=== PATIENT | female | born 1950 | race Caucasian/White ===

== ENCOUNTER → 2016-12-29 | Outpatient (CLI) | payer OTHER | END | disposition home or self-care (01) | LOC: C.PAPS 14:08 | PROVIDERS: ATTEND Obstetrics & Gynecology | DX: Z12.4 Encounter for screening for malignant neoplasm of cervix (principal) ==

== ENCOUNTER → 2017-01-16 | Outpatient (CLI) | payer OTHER ==
[2017-01-16 13:23] LABS: BASO % 0.5 %; BASO ABS # 0.04 K/uL (0-0.2); COMPLETE YES; EOS % 0.6 %; HEMATOCRIT 42.1 % (37-47); IG% 0.3 %; LYMPH % 18.9 %; LYMPH ABS # 1.67 K/uL (1.2-3.4); MEAN CELL VOLUME 98.4 fL (80-100); MEAN CORPUSCULAR HEMOGLOBIN 33.2 pg (25-34); MEAN CORPUSCULAR HGB CONC 33.7 g/dl (32-36); MEAN PLATELET VOLUME 10.5 fL (7.4-10.4); MONO % 5.4 %; NEUT % 74.3 %; PLATELET COUNT 289 K/uL (130-400); RED BLOOD COUNT 4.28 M/uL (4.2-5.4); WHITE BLOOD COUNT 8.82 K/uL (4.8-10.8)
[2017-01-16 13:45] LABS: ALT/SGPT 25 U/L (12-78); AST/SGOT 19 U/L (15-37); CREATININE 0.78 mg/dl (0.60-1.20)
[2017-01-16 13:48] LABS: ALKALINE PHOSPHATASE 74 U/L (45-117)
== END | disposition home or self-care (01) ==
LOC: C.LAB1850 11:49
PROVIDERS: ATTEND Internal Medicine Rheumatology
DX: M06.9 Rheumatoid arthritis, unspecified (principal); Z79.899 Other long term (current) drug therapy; T38.0X1A Poisoning by glucocorticoids and synthetic analogues, accidental (unintentional), initial encounter; M85.80 Other specified disorders of bone density and structure, unspecified site

== ENCOUNTER → 2017-04-17 | Outpatient (CLI) | payer OTHER ==
[2017-04-17 17:58] LABS: BASO % 0.5 %; BASO ABS # 0.04 K/uL (0-0.2); COMPLETE YES; EOS % 0.4 %; HEMATOCRIT 38.3 % (37-47); IG% 0.4 %; LYMPH % 23.4 %; LYMPH ABS # 1.93 K/uL (1.2-3.4); MEAN CELL VOLUME 97.2 fL (80-100); MEAN CORPUSCULAR HEMOGLOBIN 32.5 pg (25-34); MEAN CORPUSCULAR HGB CONC 33.4 g/dl (32-36); MEAN PLATELET VOLUME 10.5 fL (7.4-10.4); NEUT % 68.3 %; PLATELET COUNT 288 K/uL (130-400); RED BLOOD COUNT 3.94 M/uL (4.2-5.4); WHITE BLOOD COUNT 8.26 K/uL (4.8-10.8)
[2017-04-17 18:11] LABS: ALT/SGPT 19 U/L (12-78)
[2017-04-17 18:14] LABS: ALKALINE PHOSPHATASE 67 U/L (45-117); AST/SGOT 21 U/L (15-37)
== END | disposition home or self-care (01) ==
LOC: C.LABMFLN 13:15
PROVIDERS: ATTEND Internal Medicine Rheumatology
DX: M06.9 Rheumatoid arthritis, unspecified (principal); Z79.899 Other long term (current) drug therapy; T38.0X1A Poisoning by glucocorticoids and synthetic analogues, accidental (unintentional), initial encounter

== ENCOUNTER → 2017-06-10 | Outpatient (CLI) | payer OTHER | END | disposition home or self-care (01) | LOC: C.LABMFLN 11:04 | PROVIDERS: ATTEND Family Medicine | DX: M19.90 Unspecified osteoarthritis, unspecified site (principal) ==

== ENCOUNTER → 2017-08-25 | Outpatient (CLI) | payer OTHER ==
[2017-08-25 12:56] LABS: BASO % 0.2 %; BASO ABS # 0.02 K/uL (0-0.2); COMPLETE YES; EOS % 0.6 %; HEMATOCRIT 39.5 % (37-47); IG% 0.2 %; LYMPH % 19.8 %; LYMPH ABS # 2.04 K/uL (1.2-3.4); MEAN CELL VOLUME 97.5 fL (80-100); MEAN CORPUSCULAR HEMOGLOBIN 33.6 pg (25-34); MEAN CORPUSCULAR HGB CONC 34.4 g/dl (32-36); MEAN PLATELET VOLUME 10.5 fL (7.4-10.4); MONO % 3.7 %; NEUT % 75.5 %; PLATELET COUNT 258 K/uL (130-400); RED BLOOD COUNT 4.05 M/uL (4.2-5.4); WHITE BLOOD COUNT 10.29 K/uL (4.8-10.8)
[2017-08-25 13:32] LABS: ALT/SGPT 26 U/L (12-78); CREATININE 0.86 mg/dl (0.60-1.20)
[2017-08-25 13:34] LABS: ALKALINE PHOSPHATASE 71 U/L (45-117); AST/SGOT 29 U/L (15-37)
== END | disposition home or self-care (01) ==
LOC: C.LABMFLN 08:49
PROVIDERS: ATTEND Internal Medicine Rheumatology
DX: M06.9 Rheumatoid arthritis, unspecified (principal); Z79.899 Other long term (current) drug therapy; M85.80 Other specified disorders of bone density and structure, unspecified site

== ENCOUNTER → 2017-12-28 | Outpatient (CLI) | payer OTHER ==
[2017-12-28 13:45] LABS: BASO % 0.2 %; BASO ABS # 0.02 K/uL (0-0.2); EOS % 0.3 %; EOS ABS # 0.03 K/uL (0-0.5); HEMOGLOBIN 13.1 g/dL (12.0-16.0); IG# 0.03 K/uL (0.00-0.02); LYMPH % 16.7 %; MEAN CORPUSCULAR HEMOGLOBIN 32.9 pg (25-34); MEAN CORPUSCULAR HGB CONC 33.6 g/dl (32-36); MEAN PLATELET VOLUME 10.9 fL (7.4-10.4); MONO % 6.1 %; MONO ABS # 0.55 K/uL (0.11-0.59); NEUT % 76.4 %; NEUT ABS # 6.87 K/uL (1.4-6.5); PLATELET COUNT 267 K/uL (130-400); RED CELL DISTRIBUTION WIDTH CV 14.1 % (11.5-14.5); RED CELL DISTRIBUTION WIDTH SD 50.3 fL (36.4-46.3)
[2017-12-28 15:58] LABS: ALBUMIN 3.7 gm/dl (3.4-5.0); ALT/SGPT 26 U/L (12-78); CREATININE 0.85 mg/dl (0.60-1.20)
[2017-12-28 16:01] LABS: ALKALINE PHOSPHATASE 64 U/L (45-117); AST/SGOT 29 U/L (15-37); TOTAL PROTEIN 6.7 gm/dl (6.4-8.2)
== END | disposition home or self-care (01) ==
LOC: C.LABMFLN 10:50
PROVIDERS: ATTEND Internal Medicine Rheumatology
DX: Z51.81 Encounter for therapeutic drug level monitoring (principal); M06.9 Rheumatoid arthritis, unspecified; Z79.899 Other long term (current) drug therapy; M25.439 Effusion, unspecified wrist

== ENCOUNTER → 2018-04-27 | Outpatient (CLI) | payer OTHER ==
[2018-04-27 13:08] LABS: BASO % 0.4 %; BASO ABS # 0.04 K/uL (0-0.2); EOS % 1.7 %; EOS ABS # 0.16 K/uL (0-0.5); HEMATOCRIT 41.2 % (37-47); HEMOGLOBIN 13.9 g/dL (12.0-16.0); IG# 0.01 K/uL (0.00-0.02); LYMPH % 38.7 %; LYMPH ABS # 3.56 K/uL (1.2-3.4); MEAN CELL VOLUME 98.1 fL (80-100); MEAN CORPUSCULAR HEMOGLOBIN 33.1 pg (25-34); MEAN CORPUSCULAR HGB CONC 33.7 g/dl (32-36); MEAN PLATELET VOLUME 10.5 fL (7.4-10.4); MONO % 7.3 %; MONO ABS # 0.67 K/uL (0.11-0.59); NEUT % 51.8 %; NEUT ABS # 4.77 K/uL (1.4-6.5); PLATELET COUNT 282 K/uL (130-400); RED CELL DISTRIBUTION WIDTH CV 14.1 % (11.5-14.5); RED CELL DISTRIBUTION WIDTH SD 49.7 fL (36.4-46.3); WHITE BLOOD COUNT 9.21 K/uL (4.8-10.8)
[2018-04-27 14:07] LABS: ALBUMIN 3.6 gm/dl (3.4-5.0); ALKALINE PHOSPHATASE 66 U/L (45-117); ALT/SGPT 39 U/L (12-78); AST/SGOT 43 U/L (15-37); CREATININE 0.79 mg/dl (0.60-1.20); TOTAL PROTEIN 6.8 gm/dl (6.4-8.2)
== END | disposition home or self-care (01) ==
LOC: C.LABMFLN 08:10
PROVIDERS: ATTEND Internal Medicine Rheumatology
DX: Z51.81 Encounter for therapeutic drug level monitoring (principal); M06.9 Rheumatoid arthritis, unspecified; Z79.899 Other long term (current) drug therapy; M25.439 Effusion, unspecified wrist; M85.80 Other specified disorders of bone density and structure, unspecified site

== ENCOUNTER 2023-07-13 08:08 | Observation (INO) ==
--- NOTE | 2023-07-09 08:13 | History & Physical Report ---
Date of Service July 09, 2023 Assessment & Plan (1) Osteoarthritis of left shoulder: We will proceed with a left reverse shoulder arthroplasty. Postoperatively she will be placed in a sling and kept overnight in the hospital for postop medical management. She plans to go to [facility] in [place] upon discharge. History of Present Illness Chief Complaint: Severe osteoarthritis of the left shoulder. Primary Care Provider: Gavi Morillo DO Sherice is a pleasant 72-year-old female who has a history of rheumatoid arthritis. Her shoulder was doing very well until about 8 months ago when she began noticing decreased motion and increasing pain of her left shoulder. She is at the point now where she has almost no use of her shoulder. She saw my partner who obtained x-rays of her shoulder, which showed severe collapse of the humeral head. She presents to the office today with her for evaluation and treatment. . Allergies Allergy/AdvReac Type Severity Reaction Status Date / Time tofacitinib [From Xeljanz] AdvReac Mild Gastrointestinal Verified 07/06/23 13:46 Upset Home Medications Medication Instructions Recorded Confirmed Type upadacitinib 15 mg tablet,extended 15 mg PO QAM 11/09/19 07/06/23 History release 24 hr (Rinvoq) methotrexate sodium 2.5 mg tablet 7.5 mg PO WEEKLY 08/08/20 07/06/23 History calcium carbonate 600 mg-vitamin 1 tab PO QAM 02/02/23 07/06/23 History D3 10 mcg (400 unit) tablet (Calcium with Vitamin D) cholecalciferol (vitamin D3) 25 25 mcg PO QAM 02/02/23 07/06/23 History mcg (1,000 unit) capsule (Vitamin D3) folic acid 1 mg tablet 1 mg PO QAM 02/02/23 07/06/23 History cane #1 ea 02/05/23 06/08/23 Rx ibuprofen 200 mg capsule 200 mg PO HS PRN Pain 04/28/23 07/06/23 History Past Med/Surg History Medical History COPD (chronic obstructive pulmonary disease) GERD (gastroesophageal reflux disease) Pulmonary nodule monitoring with Dr Carranza Rheumatoid arthritis follows with Dr Domínguez in [employer]. Steroid-induced osteoporosis Syncope and collapse 03/08/23 while on vacation at [place] r/t dehydration, did not go to ER- rehydrated. F/U with PCP Surgical History History of arthroscopy of right knee History of bronchoscopy History of colonoscopy History of tooth extraction Sebaceous cyst REMOVED FROM RT CHEEK AREA Family History Daughter Breast cancer Family/Other No problems noted. Father Heart disease Sister Ovarian cancer Mother Stroke Other No family history of adverse response to anesthesia Denies family history of Prostate cancer Myocardial infarction Colorectal cancer Social History Smoking Status: Former smoker Tobacco Type: Cigarettes Age Started Using Tobacco: 21; Age Quit Using Tobacco: 46; packs per day: 1; Second Hand Exposure: No; Do You Dip or Chew Tobacco: No; Hx Alcohol Use: No Hx Substance Use: No Preferred Language: Pashto Visual Impairment: Partially Limited Hearing Ability: Normal Pneumatic Hoist Operator Required: No Beliefs That Will Affect Care: None marital status: Current Living Situation: Spouse current occupational status: retired How many Children do You have: 2 Feels Safe at Home: Yes Childhood Exposure to Second-Hand Smoke: No caffeine: Yes (coffee) Dental Care, Regularly: Yes Physical Activity Frequency: Daily Seatbelt Use: always Sunscreen Use: Yes Do you think of yourself as: straight/heterosexual Assistive Devices: Cane, Denture - Upper, Glasses and Walker Review of Systems All systems reviewed & are unremarkable except as noted in HPI & below. Physical Exam On physical examination of her left shoulder, she has no wounds no range of motion. I cannot lift her past 10 degrees.. Constitutional WD/WN, vitals as above Eyes PERRL, conjunctivae normal, anicteric sclerae ENMT external ear and nose normal, oropharynx normal Neck trachea midline, no thyromegaly Respiratory normal respiratory effort, lungs clear to auscultation Cardiovascular RRR, no murmur, no edema Gastrointestinal (Abdomen) normal bowel sounds, soft, nontender, no hepatosplenomegaly Skin no rashes, warm and dry Psychiatric A+Ox3, euthymic affect Results & Data Results & Data Laboratory Results . Diagnostic Findings X-rays of the left shoulder do show complete collapse of the humeral head into the glenoid.. PG Care Time/CCT Total # of Minutes Spent Total Time Spent with Patient: Total time spent is greater than 50% in coordination of care (as documented) at patient's floor/unit and/or counseling patient: Coding Level of Care Code None Diagnoses Osteoarthritis of left shoulder M19.012
--- NOTE | 2023-07-09 10:10 | Anesthesiology Consultation ---
Date of Service July 09, 2023 Assessment & Plan (1) Encounter for pre-operative examination: Chart Review Chart Review: Acceptable Risk for Surgery and Patient NOT seen in Pre Admission Testing Pt was found to have a lung nodule during w/u for shoulder surgery. Had a Markos Bronch 03/23/23 which was nondiagnostic showing few atypical cells. Thoracic Medicine Visit 06/11/23: "New CT completed 06/05/23 showed slight increase in size of the HARISH nodule (now 15, was 13mm), with no other major new changes... [pt's case was reviewed in [facility] Lung Cancer Conference]: We agree upon the followin. Very little change, but yes it could be a bit bigger. 2. Low grade adenocarcinoma certainly remains possible. 3. Okay to proceed with shoulder surgery (due next month). 4. Recommend [address] chest, then navigational bronchoscopy if the nodule remains suspicious." Pulm Visit 06/11/23: "Patient is at an acceptable risk to undergo shoulder surgery. No additional pulmonary evaluation required at this time. We can work in parallel getting a diagnosis and evaluating this pulmonary nodule but would not delay her shoulder procedure... PFTs reviewed. They demonstrate mild isolated decrease in diffusion capacity." -CBC, CMP AM of surgery Infectious Disease screening: Per PAT nursing assessment on 07/06/23, No known infectious disease contacts in past 10 days or current infectious disease symptoms. No recent travel outside the country. Pt is not currently scheduled for OPJ Program. She is not a candidate for OPJ Program per Anesthesia guidelines. History Surgery Operation Date: 07/13/23 10:40 Proposed Procedures p Left Reverse Total Shoulder Arthroplasty - Lowell Rodriguez DO Height/Weight Height: 5 ft Weight: 53.524 kg Allergies Allergy/AdvReac Type Severity Reaction Status Date / Time tofacitinib [From Xeljanz] AdvReac Mild Gastrointestinal Verified 07/06/23 13:46 Upset Medications Home Medications Medication Instructions Recorded Confirmed Last Taken upadacitinib 15 mg tablet,extended 15 mg PO QAM 11/09/19 07/06/23 03/22/23 08:00 release 24 hr (Rinvoq) methotrexate sodium 2.5 mg tablet 7.5 mg PO WEEKLY 08/08/20 07/06/23 03/22/23 calcium carbonate 600 mg-vitamin 1 tab PO QAM 02/02/23 07/06/23 03/22/23 08:00 D3 10 mcg (400 unit) tablet (Calcium with Vitamin D) cholecalciferol (vitamin D3) 25 25 mcg PO QAM 02/02/23 07/06/23 03/22/23 08:00 mcg (1,000 unit) capsule (Vitamin D3) folic acid 1 mg tablet 1 mg PO QAM 02/02/23 07/06/23 03/22/23 08:00 cane #1 ea 02/05/23 06/08/23 Unknown ibuprofen 200 mg capsule 200 mg PO HS PRN Pain 04/28/23 07/06/23 Unknown Past Medical History Medical History COPD (chronic obstructive pulmonary disease) GERD (gastroesophageal reflux disease) Pulmonary nodule monitoring with Dr Carranza Rheumatoid arthritis follows with Dr Domínguez in [place]. Steroid-induced osteoporosis Syncope and collapse 03/08/23 while on vacation at [place] r/t dehydration, did not go to ER- rehydrated. F/U with PCP Past Family History Family History Daughter Breast cancer Family/Other No problems noted. Father Heart disease Sister Ovarian cancer Mother Stroke Other No family history of adverse response to anesthesia Denies family history of Prostate cancer Myocardial infarction Colorectal cancer Past Surgical History Surgical History (Updated 07/09/23 @ 10:04 by Maria Del Carmen Alegre PA-C) History of arthroscopy of right knee History of bronchoscopy 03/23/23; ETT#8.0 HiLo, DVL x 1 atraumatic History of colonoscopy History of tooth extraction Sebaceous cyst REMOVED FROM RT CHEEK AREA Social History Smoking Status: Former smoker tobacco type: cigarettes Do You Dip or Chew Tobacco: No Smoking End Date: 1 month ago Hx Alcohol Use: No Hx Substance Use: No substance use type: does not use Testing Laboratory Results 05/27/23 WBC: 9.0 H/H: 11.3/32.7 PLATELETS: 350 POTASSIUM: 4.4 CREATININE: 0.70 Electrocardiogram Date: 02/10/23 Findings: + NSR @ (63bpm) LAD Other Testing Chest CT 06/05/23: 1. Emphysema without acute intrathoracic abnormality. 2. 1.5 cm spiculated nodule of the left upper lobe previously measured 1.3 cm on the 02/25/2023 exam. 3. Stable 9 mm right apical solid nodule. Pulmonary Function Test Date: 03/09/23 Normal spirometry and lung volumes with isolated decrease in diffusion capacity Cervical Spine Date: 02/10/23 x-ray 1. No acute fracture or subluxation. 2. Stepwise grade 1 anterolisthesis throughout the majority of the cervical spine is unchanged with positioning and is likely on a degenerative basis. Other Testing PET scan 02/25/23 1. Again seen is a 13 mm spiculated nodule in the left upper lobe. This is FDG avid and a small lung cancer is the diagnosis of exclusion. 2. There is an additional 9 mm linear nodule at the right apex. This also shows faint FDG uptake. A second tiny neoplasm is not excluded. Correlation with a diagnostic chest CT is recommended for further evaluation. 3. Additional tiny pulmonary nodules are pathologically indeterminate and too small for PET characterization. Attention at follow-up is recommend. 4. Degenerative and posttraumatic change involving left shoulder and scapula as above. This shows low level FDG uptake. 5. Emphysema. 6. Advanced colonic diverticulosis without CT evidence of acute diverticulosis. 7. Additional findings as above.
[~2023-07-13 08:08] MED LIST: ACETAMINOPHEN 500 MG TAB PO SCH; BUPIVACAINE 0.5 % 5 MG/1 ML PF 10ML VIAL ONE; FAMOTIDINE 20 MG TAB PO SCH; GABAPENTIN 300 MG CAP PO SCH; LR 60ML/HR IV SCH; ORTHO JOINT MIX INFIL SCH; TRANEXAMIC ACID 1,000 MG **IV Intra-op IV SCH; TRANEXAMIC ACID 1,000 MG **IV Pre-op IV SCH; ceFAZolin 2000MG 2,000 MG/15 ML SYR IV SCH; dexAMETHasone 4 MG TAB PO SCH
[2023-07-13] MEDS ORDERED: PROPOFOL IV EMULSION 10 MG/ML 20 ML VIAL IV ONE (08:39)
[2023-07-13] MEDS ORDERED: ONDANSETRON INJ 2 MG/ML 2 ML VIAL ONE (08:39)
[2023-07-13] MEDS ORDERED: DEXAMETHASONE SOD INJ 4 MG/ML VIAL ONE (08:39)
[2023-07-13] MEDS ORDERED: fentaNYL citrate PF 100 MCG/2 ML VIAL ONE (08:39)
[2023-07-13] MEDS ORDERED: MIDAZOLAM HCL 1 MG/ML 2ML VIAL ONE (08:39)
[2023-07-13 08:42] LABS: Basophils # (auto) 0.03 K/uL (0.00-0.20); Basophils % (auto) 0.3 %; Eosinophils # (auto) 0.09 K/uL (0.00-0.50); Hematocrit (blood only) 35.9 % (37.0-47.0); Hemoglobin 12.1 g/dl (12.0-16.0); Immature Granulocytes # (auto) 0.06 K/uL (0.01-0.20); Immature Granulocytes % (auto) 0.7 %; Lymphocytes # (auto) 2.35 K/uL (1.20-3.40); Lymphocytes % (auto) 25.8 %; Mean Corpuscular Hgb Conc 33.7 g/dL (32.0-36.0); Mean Corpuscular Volume 97.8 fL (80.0-100.0); Mean Platelet Volume 9.5 fL (9.4-12.4); Monocytes # (auto) 1.05 K/uL (0.11-0.59); Monocytes % (auto) 11.5 %; Neutrophils # (auto) 5.52 K/uL (1.40-6.50); Neutrophils % (auto) 60.7 %; Platelet Count 327 K/uL (130-400); RDW Coefficient of Variation 13.5 % (11.5-14.5); RDW Standard Deviation 48.5 fL (36.4-46.3); Red Blood Count 3.67 M/uL (4.20-5.40)
[2023-07-13 09:05] LABS: Albumin Globulin Ratio 1.7 (0.9-2); Albumin Level 4.4 gm/dl (3.4-5.0); BUN Creatinine Ratio 17.8 (10-20); Bilirubin,Total 0.5 mg/dl (0.2-1.0); Calcium 9.6 mg/dl (8.6-10.3); Est GFR (African American) 95.4 ml/min; Est GFR (Non-African American) 82.3 ml/min; Globulin 2.6 gm/dl (2.5-4.0)
--- NOTE | 2023-07-13 09:23 | History & Physical Bridge Note ---
Date of Service July 13, 2023 History & Physical Bridge Note I have examined the patient, reviewed the History & Physical and in the interval since the performance of the History & Physical I have noted the following changes of clinical significance: no changes noted
[2023-07-13] MEDS ORDERED: fentaNYL citrate PF 100 MCG/2 ML VIAL IV PRN (10:06)
[2023-07-13] MEDS ORDERED: ATROPINE SULFATE 0.1 MG/ML 10ML SYR IV PRN (10:06)
[2023-07-13] MEDS ORDERED: ePHEDrine sulfate 50 MG/ML AMP IV PRN (10:06)
[2023-07-13] MEDS ORDERED: ONDANSETRON INJ 2 MG/ML 2 ML VIAL IV PRN ×2 (10:06→15:58)
[2023-07-13] MEDS ORDERED: ORTHO JOINT ANESTHETIC ONE (10:11)
[2023-07-13] MEDS ORDERED: ePHEDrine sulfate 50 MG/5 ML SYR ONE (11:08)
--- NOTE | 2023-07-13 13:24 | Operative Report ---
PG Post Operative Report Pre & Post Diagnosis Operation Date: 07/13/23 10:20 Pre-Op Diagnosis: Osteoarthritis of left shoulder Post-Op Diagnosis: Osteoarthritis of left shoulder I identified the patient and participated in the time-out.: Yes Procedure Operation Date: 07/13/23 10:20 Actual Procedures p Left Shoulder Hemiarthroplasty(Left) - Lowell Rodriguez DO Surgeon Lowell Rodriguez DO Patient Services Specialist Lowell Singh PA-C Estimated Blood Loss 200 Findings Consistent with Post-Op Diagnosis Specimens None Description of Procedure On July 13, 2023 Sherice arrived at [facility] for the above procedure. She was in the preoperative holding area and the operative extremity identified and signed. She given a preoperative antibiotic and a left interscalene nerve block. She was taken back the operative room and laid on table in supine position. She was put under general anesthesia. Left shoulder was prepped and draped sterile fashion. A timeout was done. The patient and the operative extremity was properly identified. A deltopectoral approach was used. Dissection was taken down through the fascia. The anatomy was distorted from the severity of the deformity of the humeral head. The deltopectoral interval was split and the anterior shoulder was exposed. The subscapularis was then peeled off the lesser tuberosity. The long head of the biceps tendon was absent. There was a hemarthrosis within the joint. The joint was irrigated. The inferior humeral ligaments were released off the humeral stem and the proximal humerus was exposed closed. The humeral head was completely flattened out. Sequential reaming up to a size 6 reamer was done. A proximal humeral resection guide was placed in the proximal humerus was resected at 30 degrees of retroversion. Sequential broaching was then done up to a size 6 broach. The glenoid was then exposed. Time was spent doing a labral release and expose the glenoid. The glenoid was significantly deformed. It was almost concave on the anterior aspect and the posterior third was missing. The Biomet VR S guide was then snapped onto the glenoid. I was not ab le to get a great fit with it. There may have been more bone loss since the implant was generated. I was able to place a guidepin in a reasonable area and the boss was drilled. A bur was used to remove a little bit of bone to help the implant fit. I was able to fit the VR S implant. A single central screw was placed followed by 3 peripheral screws. The glenosphere was then impacted into place lightly. I then noticed a fracture. There is a fracture of the anterior wall of the glenoid and to the base of the coracoid. The VRS implant was then removed. I tried to piece the anterior glenoid back together and I tried to place a 4 oh cannulated screw but just fractured the fragment even further. There was such a small amount of bone and such poor bone quality was unable to get any fixation of the glenoid fracture. The wound was irrigated. At this point I felt my only option was to do a hemiarthroplasty. I placed a 46 mm x 18 mm fully eccentric humeral head. I brought the shoulder felt through full range of motion felt to be stable. The broach was then removed. The final size 6 Biomet comprehensive micro stem was then impacted in the place. A 46 x 18 mm eccentric humeral head was then impacted. The shoulder was then reduced. The subscapularis was repaired with transosseous FiberWire sutures. The shoulder was brought through full range of motion and felt to be relatively stable. The wound was then irrigated. The deltopectoral interval was then closed with 2-0 Vicryl suture. Skin was closed with 3-0 Vicryl and aleksandar. She was placed in a Silverlon dressing. She was placed in arm sling. She was then extubated and transferred to a hospital bed. She was taken to the postanesthesia care unit in stable condition. She tolerated the procedure well. Lowell Singh PA-C, was present for the entire procedure. He was critical for patient positioning, prepping, draping, retraction exposure, wound closure and application of sterile dressing. I attest to the content of the Intraoperative Record and any orders documented therein. Any exceptions are noted below.
--- NOTE | 2023-07-13 14:20 | XRay Report ---
XR shoulder LT min 2V routine CLINICAL HISTORY: Post shoulder surgery COMPARISON: Left shoulder CT February 10, 2023. FINDINGS: Alignment of the left shoulder arthroplasty is anatomic. There is no periprosthetic fractu re or unexpected radiopaque foreign bodies. There are skin aleksandar. IMPRESSION: Expected findings following left shoulder arthroplasty. ACT 112: Negative or not required by law. Electronically signed by: Anjum Pratt M.D. 07/13/2023 2:19 PM
--- NOTE | 2023-07-13 14:23 | Anesthesiology Progress Note ---
Date of Service July 13, 2023 Anesthesia Post Procedure Vital Signs Vital Signs: Temp Pulse Pulse Resp BP Pulse Ox O2 Del Method 07/13/23 14:10 80 18 116/76 97 Room Air 07/13/23 14:00 82 20 112/70 96 Room Air 07/13/23 13:50 77 18 124/74 97 Room Air 07/13/23 13:40 73 17 115/71 100 Oxymask 07/13/23 13:35 78 24 127/68 100 Oxymask 07/13/23 13:29 97.0 F L 70 16 111/68 98 Oxymask 07/13/23 08:33 99.0 F 68 18 139/76 98 Room Air O2 Flow Rate 07/13/23 14:10 07/13/23 14:00 07/13/23 13:50 07/13/23 13:40 4 07/13/23 13:35 6 07/13/23 13:29 6 07/13/23 08:33 Transfer of Care Handoff Completed per policy Notes Mental Status: alert / awake / arousable and participated in evaluation Patient Amnestic to Procedure: Yes Nausea / Vomiting: adequately controlled Pain: adequately controlled Airway Patency, RR, SpO2: stable & adequate BP & HR: stable & adequate Hydration State: stable & adequate Anesthetic Complications: no major complications apparent and Pt Satisfied with anesthetic care
[2023-07-13] MEDS ORDERED: MAGNESIUM HYDROXIDE SUSP 30 ML UDC PO PRN (15:58)
[2023-07-13] MEDS ORDERED: METOCLOPRAMIDE HCL INJ 5 MG/ML 2 ML VIAL IV PRN (15:58)
[2023-07-13] MEDS ORDERED: bisacodyL 10 MG SUPP PR PRN (15:58)
[2023-07-13] MEDS ORDERED: oxyCODONE HCL IR 5 MG TAB (IMMEDIATE RELEASE) PO PRN (15:58)
[2023-07-13] MEDS ORDERED: HYDROmorphone INJ 0.5 MG/0.5 ML SYR IV PRN (15:58)
[2023-07-13] MEDS ORDERED: NALOXONE HCL 0.4 MG/1 ML VIAL/CARP IV PRN (15:58)
[2023-07-13] MEDS: ACETAMINOPHEN 500 MG TAB PO SCH ×2 (17:14→19:52)
[2023-07-13] MEDS: SODIUM CHLORIDE 0.9% 1,000 ML IV SCH (17:14)
[2023-07-13] MEDS: DOCUSATE SODIUM 100 MG CAP PO SCH (19:52)
[2023-07-13] MEDS ORDERED: SENNA 8.6 MG TAB PO SCH (21:00)
[2023-07-13] MEDS: ceFAZolin 2000MG 2,000 MG/15 ML SYR IV SCH (22:13)
[2023-07-14] MEDS: SODIUM CHLORIDE 0.9% 1,000 ML IV SCH (03:02)
[2023-07-14] MEDS: ACETAMINOPHEN 500 MG TAB PO SCH (05:10)
[2023-07-14] MEDS: ceFAZolin 2000MG 2,000 MG/15 ML SYR IV SCH (05:10)
--- NOTE | 2023-07-14 06:55 | Orthopedic Progress Note ---
Date of Service July 14, 2023 Assessment & Plan (1) Status post left shoulder hemiarthroplasty: Overall she is doing fairly well. The nerve block should wear off over the next 12 to 24 hours. Significant time was spent yesterday with her and her family describing the procedure as well as the glenoid fracture. She understands everything and she was grateful for my efforts. She will be pretty sore with the shoulder for the next 6 weeks. She will be in a sling for 6 weeks. No therapy for the next 6 weeks. She can be seen by therapy today for ambulation and range of motion exercises. She can be discharged home later today. She will follow-up with orthopedics in 2 weeks. David Smiley was seen and examined at bedside this morning. Overall she is doing fairly well. She does not have any pain in the left shoulder. The nerve block is still in effect. She has no complaints.. Review of Systems All systems reviewed & are unremarkable except as noted in HPI & below. Physical Exam On physical examination of her left arm, she has no pain. She does not have any motion of her hand or wrist. She has numbness in her hand. The nerve block is still in effect.. Results & Data Results & Data Laboratory Results . Diagnostic Findings Postoperative x-rays of the left shoulder show a well-placed hemiarthroplasty with a complex glenoid fracture.. PG Care Time/CCT Total # of Minutes Spent Total Time Spent with Patient: Total time spent is greater than 50% in coordination of care (as documented) at patient's floor/unit and/or counseling patient: Coding Level of Care Code 67418 Post Operative Follow-Up Diagnoses Status post left shoulder hemiarthroplasty Z96.612
--- NOTE | 2023-07-14 06:56 | Discharge Summary ---
Date of Service July 14, 2023 Admission HPI (Per Admitting) Sherice is a pleasant 72-year-old female who has a history of rheumatoid arthritis. Her shoulder was doing very well until about 8 months ago when she began noticing decreased motion and increasing pain of her left shoulder. She is at the point now where she has almost no use of her shoulder. She saw my partner who obtained x-rays of her shoulder, which showed severe collapse of the humeral head. She presents to the office today with her for evaluation and treatment. . Admission Exam (Per Admitting) On physical examination of her left shoulder, she has no wounds no range of motion. I cannot lift her past 10 degrees.. Principal Diagnosis Same as "Discharge Diagnosis" noted below under Discharge Instructions. Discharge Exam On physical examination of her left arm, she has no pain. She does not have any motion of her hand or wrist. She has numbness in her hand. The nerve block is still in effect.. Discharge Data Procedures Performed Operation Date: 07/13/23 10:20 Actual Procedures p Left Shoulder Hemiarthroplasty(Left) - Lowell Rodriguez DO Ordered Studies 07/13/23 05:00 US - OR guided needle placemen Routine Hospital Course (1) Status post left shoulder hemiarthroplasty: On July 13, 2023 Sherice arrived at [facility] and underwent a left shoulder replacement. She had severe bone loss on her glenoid. An attempt was made to place a reverse implant, however, there was fracture of the glenoid. A decision was made then to do a hemiarthroplasty. Postoperatively she was placed in a sling and transferred to the general orthopedic floors. Her hospital course was uneventful. On postop day #1, her vital signs were stable and her pain was well controlled. The nerve block was still in effect. She was able to participate well with physical therapy. She was then discharged home. She will follow-up with orthopedics in 2 weeks. PG Care Time/CCT Total # of Minutes Spent Total Time Spent with Patient: Total time spent is greater than 50% in coordination of care (as documented) at patient's floor/unit and/or counseling patient: Discharge Plan Discharge Items Patient Disposition: Home - Home Health Services Reason For Visit: POST OP Discharge Diagnosis: Left shoulder hemiarthroplasty Activity: Per Instructions section Non-emergency contact: Surgeon Call non-emergency contact if: your wound has increased redness and your wound has increased drainage Follow-up/Referrals: Gavi Morillo DO [Primary Care Provider] - Diet: Regular Addtl Attending Provider Instructions: Activity and Therapy Recommendations: * If you are using [facility] then therapy will be provided at your home until they feel you have accomplished all of your goals. * If you are using [facility] then Physical Therapy will be provided until they feel you are ready to start Outpatient Physical Therapy. * If you are not using home therapy then Outpatient Physical Therapy should start about 3-5 days from your day of surgery. Therapy will last about 8-12 weeks * Wear your sling for 3 weeks, unless otherwise instructed. You may remove your sling to shower and to dress, but otherwise, you should be in your sling at all times, including while sleeping * The shoulder replacement is very stable and you can use your hand while in the sling * You were shown a series of exercises in the hospital. Do these exercises daily including the exercises you were shown in physical therapy. Medications: * Narcotic You will likely be sent home from the hospital with a prescription for the narcotic pain medication that worked best throughout your stay. * Other medications may be prescribed for specific circumstances. If you have any questions, please call the office at . * Resume previous home medications unless otherwise instructed Dressing Care: Leave the Silverlon dressing in place for 7 days. After 7 days you may remove the dressing. If the incision is not draining then you may leave the aleksandar open to air. If there is a little bit of drainage or if the aleksandar are getting stuck on your clothing then cover the incision with a dry dressing. The aleksandar will be removed at your 2 week follow-up appointment. Showering: You may shower with the Silverlon dressing in place. Do not let the shower spray hit the dressing directly. Pat the Silverlon dressing dry. If the dressing becomes wet underneath, then simply remove the dressing. Keep the incision dry until you are 7 days out from the day of surgery. After 7 days you may remove the Silverlon dressing and shower with the aleksandar exposed. Let soapy water run over the aleksandar and pat them dry. Do not scrub or soak the incision. Things To Watch For: * Drainage from the incision site that occurs more than one week after your surgery. * Increased redness at the incision site. * Fever above 102 degrees Fahrenheit. * Unusual chest pain or shortness of breath. * Call [facility] at with any of the above problems Follow-Up Visit: Follow-up with Dr. Rodriguez's PA (Lowell Singh) 2-3 weeks after your day of surgery. He will remove your aleksandar and answer any questions. If you have any additional questions or concerns, Dr Rodriguez is usually in the office at the same time and will be available An appointment was probably scheduled when you signed-up for surgery in the office. If you have any questions call More detailed instructions as well as Frequently Asked Questions were provided in a folder by our office when you signed-up for surgery. Please review these instructions when you get home. If you have any further questions or concerns, please feel free to call the office at [phone] Pending Studies at Discharge: No Stand-Alone Forms: My [facility] Medications and DC Order Prescriptions: New tramadol 50 mg tablet 50 mg PO Q6H PRN (Reason: pain) Qty: 30 0RF Continued methotrexate sodium 2.5 mg tablet 7.5 mg PO WEEKLY Patient Comments: sundays Rx Instructions: on hold since 07/05 (DME) cane See Rx Instructions .Route .MEDSUPPLY Qty: 1 0RF Rx Instructions: As directed Rinvoq 15 mg tablet extended release 24 hr 15 mg PO QAM Rx Instructions: on hold since 07/05 cholecalciferol (vitamin D3) [Vitamin D3] 25 mcg (1,000 unit) Capsule 25 mcg PO QAM folic acid 1 mg tablet 1 mg PO QAM calcium carbonate-vitamin D3 [Calcium with Vitamin D] 600 mg(1,500mg) -400 unit tablet 1 tab PO QAM ibuprofen 200 mg Capsule 200 mg PO HS PRN (Reason: Pain) acetaminophen 500 mg Tablet 500 mg PO Q6H PRN (Reason: Pain) Admission Data Admit Date/Time: 07/13/23 13:36 Attending Provider: Lowell Rodriguez Admit Provider: Lowell Rodriguez Primary Care Provider: Gavi Morillo
[2023-07-14] MEDS: DOCUSATE SODIUM 100 MG CAP PO SCH (07:47)
[2023-07-14] MEDS ORDERED: dexAMETHasone 4 MG TAB PO SCH (08:00)
[2023-07-14] MEDS ORDERED: MULTIVITAMIN TAB PO SCH (09:00)
[2023-07-14] MEDS ORDERED: FOLIC ACID 1 MG TAB PO SCH (09:00)
== END 2023-07-14 10:57 | disposition home health service (06) ==
LOC: ASU 08:08 → 3E 08:08

== ENCOUNTER 2025-08-01 12:46 | Observation (INO) ==
[2025-08-01 13:35] LABS: Hematocrit (blood only) 31.9 % (37.0-47.0); Hemoglobin 11.3 g/dl (12.0-16.0); Immature Granulocytes # (auto) 0.05 K/uL (0.01-0.20); Immature Granulocytes % (auto) 0.8 %; Mean Corpuscular Hemoglobin 35.3 pg (25.0-34.0); Mean Corpuscular Volume 99.7 fL (80.0-100.0); Platelet Count 162 K/uL (130-400); RDW Standard Deviation 49.1 fL (36.4-46.3); Red Blood Count 3.20 M/uL (4.20-5.40); White Blood Count 6.00 K/ul (4.8-10.8)
--- NOTE | 2025-08-01 13:36 | XRay Report ---
XR chest 1V portable CLINICAL HISTORY: Dyspnea COMPARISON STUDY: 09/20/2024 FINDINGS: Stable mild cardiomegaly without pulmonary vascular congestion. There is increased bandlike opacity at the right lung apex. Stable bandlike opacity at the left upper lung. There is a possible interval small area of patchy opacity at the left lung base versus artifact. No other new consolidati on or pleural effusion seen. No pneumothorax. IMPRESSION: 1. Possible early pneumonia left lung base. 2. Increased bandlike opacity at the right lung apex has morphology suggesting scarring. ACT 112: Negative or not required by law. Electronically signed by: Zak Spencer M.D. 08/01/2025 1:34 PM
[2025-08-01 13:49] LABS: Alanine Aminotransferase 18.0 U/L (7-52); Albumin Globulin Ratio 1.7 (0.9-2); Albumin Level 4.8 gm/dl (3.4-5.0); Alkaline Phosphatase 29.0 U/L (34-104); Anion Gap 8.0 (3-11); Bilirubin,Total 0.7 mg/dl (0.2-1.0); Blood Urea Nitrogen 22.0 mg/dl (6-23); Calcium 10.3 mg/dl (8.6-10.3); Carbon Dioxide 27.0 mmol/L (21-32); Chloride 98.0 mmol/L (98-107); Creatinine Clr Calc Pharmacy 36.8 ml/min; Globulin 2.9 gm/dl (2.5-4.0); Glucose 134.0 mg/dl (70-99(Fasting)); Magnesium 1.9 mg/dl (1.7-2.4); Potassium 4.0 mmol/L (3.5-5.1); Sodium 133.0 mmol/L (136-145); Total Protein 7.7 gm/dl (6.0-8.3)
[2025-08-01 13:59] LABS: INR 1.1 (0.9-1.1); Prothrombin Time 11.6 Seconds (9.0-12.0)
[2025-08-01 14:19] LABS: Chlamydia pneumoniae PCR Not Detected (NotDetected); Coronavirus 229E PCR Not Detected (NotDetected); Coronavirus CoV-2 (COVID19)PCR Not Detected (NotDetected); Coronavirus HKU1 PCR Not Detected (NotDetected); Coronavirus NL63 PCR Not Detected (NotDetected); Coronavirus OC43PCR Not Detected (NotDetected); Human Metapneumovirus PCR Not Detected (NotDetected); Parainfluenza Virus 1 PCR Not Detected (NotDetected); Parainfluenza Virus 2 PCR Not Detected (NotDetected); Parainfluenza Virus 3 PCR Not Detected (NotDetected); Parainfluenza Virus 4 PCR Not Detected (NotDetected); Respiratory Syncytial VirusPCR Not Detected (NotDetected); Rhinovirus/Enterovirus PCR Not Detected (NotDetected)
[2025-08-01] MEDS: OPTIRAY 320 125ml IV ONE (14:24)
--- NOTE | 2025-08-01 14:47 | CT Scan Report ---
CT ANGIOGRAM OF THE CHEST CLINICAL HISTORY: Dyspnea COMPARISON STUDY: Chest x-ray dated 08/01/2025. Chest CT dated 09/14/2024. PET/CT dated 03/15/2025. TECHNIQUE: Following the IV administration of 112 cc of Optiray 320, CT angiogram of the chest was pe rformed from the upper abdomen to the thoracic inlet utilizing the pulmonary embolus protocol. Images are reviewed in the axial, sagittal, and coronal planes. 3-D MIPS images are created and assessed. I V contrast was administered without complication. A dose lowering technique was utilized adhering to the principles of ALARA. There is streak artifact from a left shoulder arthroplasty. CT DOSE: 424.39 mGy.cm FINDINGS: Thyroid: Imaged portions of the thyroid gland are normal in size and attenuation. Thoracic aorta: There is atherosclerotic calcification of the thoracic aorta, which is normal in lorena junior and demonstrates standard 3-vessel arch anatomy. No dissection is seen. Pulmonary vasculature: The main pulmonary arteries are dilated suggesting pulmonary artery hypertensi on. There is extensive bilateral pulmonary embolus. There is thrombus in the distal right main pulmon slick artery, which extends into the right upper and right lower lobe pulmonary arteries into segmental and subsegmental branches. There is thrombus within the left lower lobe pulmonary artery which exten ds into segmental and subsegmental branches. Segmental and subsegmental pulmonary emboli are seen wit hin branches of the left upper lobe pulmonary artery. Heart: The heart is mildly enlarged and without pericardial effusion. The coronary arteries are dense ly calcified. Lungs and pleural spaces: Emphysematous change is observed. There is no airspace consolidation typica l for pneumonia. The trachea and central airways appear clear. Fibrotic change at the right apex with surrounding loculated fluid is similar to 03/15/2025 PET examination. Related change in the left uppe r lobe is also similar to prior studies. Additional foci of parenchymal scarring are seen throughout both lungs. There is mild diffuse bronchiectasis with associated peribronchial thickening. Mediastinum: There is no mediastinal lymphadenopathy. Kristy: Clear. Axillae: There is no axillary lymphadenopathy. Upper abdomen: There is a small hiatal hernia. Diverticula are noted in the partially imaged left col on. Skeletal structures: The skeletal structures are osteopenic. Degenerative change and kyphoscoliosis i s noted in the thoracic spine. No lytic or blastic bony lesions are seen. A left shoulder arthroplast y is in place. There is chronic deformity of the left-sided ribs. IMPRESSION: 1. Extensive bilateral pulmonary emboli as above. 2. Mild cardiomegaly and emphysema. 3. Fibrotic change at the right apex with adjacent loculated fluid and treatment related change in th e left upper lobe is similar to previous. 4. There is no airspace consolidation typical for pneumonia. 5. Additional findings as above. ACT 112: Negative or not required by law. Electronically signed by: Keagan Araujo M.D. 08/01/2025 2:45 PM
--- NOTE | 2025-08-01 14:55 | Emergency Department Note ---
Impression & Plan Acute dyspnea, Dyspnea on exertion, Bilateral pulmonary embolism, Hypoxia, Elevated troponin ED Provider Note HISTORY OF PRESENT ILLNESS: Patient is a 75-year-old female presenting with shortness of breath. Patient reports that for the last week she has been having progressively worsening shortness of breath with ambulation. Reports that only taking a few steps causes her to become very short of breath and she has to stop to catch her breath. She denies ever having this issue previously. She states that just walking up the stairs at her house caused her to become winded. She went to her primary care provider's office today and had an ambulatory pulse ox saturation of 84% on room air. She does not wear any supplemental oxygen at baseline. She has a history of lung cancer and is status post chemotherapy and radiation therapy. Patient denies any DVT or PE history. She does not take any anticoagulation or antiplatelet therapies. Denies any history of cardiac stents. She denies any chest pain. ROS: as above PHYSICAL EXAM: Constitutional: Patient appears in no acute distress. HENT: Head: Normocephalic and atraumatic. Eyes: EOMI, PERRL Mouth/Throat: Mucous membranes moist. Neck: Trachea midline. Neck supple. Cardiovascular: RRR, No murmurs, rubs or gallops. Intact distal pulses. Pulmonary/Chest: No respiratory distress. Breath sounds clear and equal bilaterally. No wheezes or rales. Abdominal: Abdomen soft, no tenderness, rebound or guarding. Musculoskeletal: No edema, tenderness or deformity noted. Skin: Warm and dry. No rash, erythema, pallor or cyanosis Psychiatric: Appropriate mood and affect for situation. Neurological: Alert and keenly responsive. CN II-XII grossly intact, moving all extremities equally and fully. MDM: - Vitals signs showed hypertension - History obtained via patient. History as above. - Chronic conditions affecting care: lung cancer; COPD; rheumatoid arthritis - Differential diagnoses include, but are not limited to: Congestive heart failure; acute coronary syndrome; COPD/asthma exacerbation; pulmonary edema; pulmonary embolism; pneumonia; pneumothorax; viral syndrome - Order placed for continuous cardiac monitoring. At this time, monitor showed rate of 76 bpm with normal sinus rhythm, per my interpretation. - External medical records reviewed. Primary care visit note dated today was reviewed. Patient has been having shortness of breath with exertion for the last week. Negative home COVID test. She was noted to become hypoxic with ambulation in clinic. Patient was referred to the emergency department for further workup. - EKG image interpreted by myself showed normal sinus rhythm. Rate 85 bpm. QT 380. No acute ischemic changes. - Laboratory workup interpreted by myself showed normal WBC; chronic anemia; normal PT/INR; stable electrolytes; elevated troponin (21.7); normal BNP - Viral respiratory panel negative - CXR image reviewed interpreted by myself negative for pulmonary edema, per my interpretation. Radiology notes possible early pneumonia in the left lung base. - CT PE showed extensive bilateral pulmonary emboli. Noted to have fibrotic changes in the right apex. No airspace consolidation consistent with pneumonia. - Heparin bolus and drip ordered - Discussion was had with medical case worker about patient's case and need for admission - Hospitalist consulted for admission - [facility]. I have personally spent 48 minutes of critical care time in the direct management of this patient. This includes bedside care, interpretation of diagnostic studies, and testing, discussion with consultants, patient, and family members, and other required patient management activities. This 48 minutes is in excess of all separately billable procedures. ASSESSMENT AND PLAN: Diagnosis: Acute dyspnea; dyspnea on exertion; bilateral pulmonary emboli; elevated troponin; hypoxia Plan: admit Past Med/Surg History Problem List (Updated 08/01/25 @ 15:58 by Merna Pereira MD) Elevated troponin (Acute) Hypoxia (Acute) Bilateral pulmonary embolism (Acute) Dyspnea on exertion (Acute) Acute dyspnea (Acute) Squamous cell carcinoma of right lung (Chronic 09/20/24) Squamous cell carcinoma of lung, stage I (Chronic) Diagnosed on 09/15/23 COPD (chronic obstructive pulmonary disease) very well controlled per pt > no inhalers Pulmonary nodule (Chronic) monitoring with Dr Carranza Gait abnormality Vitamin D deficiency Steroid-induced osteoporosis Rheumatoid arthritis follows with Dr Domínguez in [place]. Generalized osteoarthritis of multiple sites Medical History Osteoarthritis Hx of squamous cell carcinoma lung>radiation tx 08/2024 Rheumatoid arthritis Chronic obstructive pulmonary disease "mild" Lung nodule Surgical History History of cataract surgery right Status post left shoulder hemiarthroplasty (~06/2023) H/O arthroscopy of knee left History of bronchoscopy 03/23/23; ETT#8.0 HiLo, DVL x 1 atraumatic 09/15/23 Dr. Carranza History of tooth extraction Sebaceous cyst removed from right cheek area Family History Daughter Breast cancer Father , 86yo Bladder infection Sister Ovarian cancer Mother , 84yo Stroke Daughter No problems noted. Other No family history of adverse response to anesthesia Denies family history of Prostate cancer Myocardial infarction Colorectal cancer Social History Smoking Status: Former smoker Tobacco Type: Cigarettes Age Started Using Tobacco: 21; Age Quit Using Tobacco: 74; packs per day: 1; Cigarettes Per Day: 10 cig per week/average>advised; Second Hand Exposure: No; Do You Dip or Chew Tobacco: No; Hx Alcohol Use: No Hx Substance Use: No Preferred Language: Chinese Communication Ability: Effective Visual Impairment: No Limitations Hearing Ability: Normal Fast Food Manager Required: No Beliefs That Will Affect Care: None marital status: Current Living Situation: Spouse current occupational status: retired current occupation: Worked at [employer] How many Children do You have: 2 Feels Safe at Home: Yes caffeine: Yes (2 cups coffee/dy) during the past year weight has: remained stable Seatbelt Use: always Assistive Devices: Brace/Splint/Immobilizer, Cane and Glasses Allergies Allergies Allergy/AdvReac Type Severity Reaction Status Date / Time tofacitinib [From Xeljanz] AdvReac Mild Gastrointestinal Verified 08/01/25 11:03 Upset Home Meds Home Medications Medication Instructions Recorded Confirmed upadacitinib 15 mg tablet,extended 15 mg PO QAM 11/09/19 08/01/25 release 24 hr (Rinvoq) methotrexate sodium 2.5 mg tablet 7.5 mg PO WEEKLY 08/08/20 08/01/25 calcium 600 mg (as 1 tab PO QAM 02/02/23 08/01/25 carbonate)-vitamin D3 10 mcg (400 unit) tablet (Calcium with Vitamin D) cholecalciferol (vitamin D3) 25 25 mcg PO QAM 02/02/23 08/01/25 mcg (1,000 unit) capsule (Vitamin D3) folic acid 1 mg tablet 1 mg PO QAM 02/02/23 08/01/25 acetaminophen 500 mg tablet 500 mg PO Q6H PRN Pain 07/13/23 08/01/25 celecoxib 200 mg capsule 200 mg PO QAM 03/01/24 08/01/25 raloxifene 60 mg tablet 60 mg PO QAM 10/31/24 08/01/25 cyanocobalamin (vitamin B-12) 1,000 mcg PO DAILY 08/01/25 08/01/25 1,000 mcg tablet Previous Rx's Medication Instructions Recorded cane #1 ea 02/05/23 Results & Data (ED) Vital Signs Vital Signs - 24 hr 08/01/25 12:49 08/01/25 13:16 08/01/25 13:19 Temperature 36.9 C Temperature Source Skin Pulse Rate 91 H Pulse Rate [Apical] 76 Pulse Rate from SpO2 Sensor Respiratory Rate 17 24 Respiratory Effort / Characteristics Non-Labored Spontaneous SOB on Exertion Respiratory Depth Normal Respiratory Pattern Regular Blood Pressure 120/63 Blood Pressure [Right Arm] 141/79 H Blood Pressure Mean 82 Blood Pressure Mean [Right Arm] 99 Pulse Oximetry 92 96 93 Oxygen Delivery Method Room Air Room Air Room Air Sepsis Recent Fever Within 48 Hours No Sepsis New/Unexplained Change in Mental Status N/A Sepsis Action Taken by Nursing No Action Required 08/01/25 13:20 08/01/25 13:24 08/01/25 13:30 Temperature Temperature Source Pulse Rate 76 74 Pulse Rate [Apical] Pulse Rate from SpO2 Sensor 76 74 Respiratory Rate 20 23 Respiratory Effort / Characteristics SOB on Exertion Respiratory Depth Normal Respiratory Pattern Blood Pressure Blood Pressure [Right Arm] Blood Pressure Mean Blood Pressure Mean [Right Arm] Pulse Oximetry 91 92 Oxygen Delivery Method Sepsis Recent Fever Within 48 Hours Sepsis New/Unexplained Change in Mental Status Sepsis Action Taken by Nursing 08/01/25 14:15 08/01/25 14:45 Temperature Temperature Source Pulse Rate 77 78 Pulse Rate [Apical] Pulse Rate from SpO2 Sensor 77 78 Respiratory Rate 19 20 Respiratory Effort / Characteristics Respiratory Depth Respiratory Pattern Blood Pressure Blood Pressure [Right Arm] Blood Pressure Mean Blood Pressure Mean [Right Arm] Pulse Oximetry Oxygen Delivery Method Room Air Sepsis Recent Fever Within 48 Hours Sepsis New/Unexplained Change in Mental Status Sepsis Action Taken by Nursing Laboratory Data 08/01/25 13:10 08/01/25 13:10 Lab Results 08/01/25 Range/Units 13:10 WBC 6.00 (4.8-10.8) K/ul RBC 3.20 L (4.20-5.40) M/uL Hgb 11.3 L (12.0-16.0) g/dl Hct 31.9 L (37.0-47.0) % MCV 99.7 (80.0-100.0) fL MCH 35.3 H (25.0-34.0) pg MCHC 35.4 (32.0-36.0) g/dL RDW Std Deviation 49.1 H (36.4-46.3) fL RDW Coeff of Sherri 13.6 (11.5-14.5) % Plt Count 162 (130-400) K/uL MPV 9.7 (9.4-12.4) fL Immature Gran % (Auto) 0.8 % Neut % (Auto) 55.0 % Lymph % (Auto) 35.7 % [place] % (Auto) 7.7 % Eos % (Auto) 0.3 % Baso % (Auto) 0.5 % Neut # (Auto) 3.30 (1.40-6.50) K/uL Lymph # (Auto) 2.14 (1.20-3.40) K/uL [place] # (Auto) 0.46 (0.11-0.59) K/uL Eos # (Auto) 0.02 (0.00-0.50) K/uL Baso # (Auto) 0.03 (0.00-0.20) K/uL Immature Gran # (Auto) 0.05 (0.01-0.20) K/uL PT 11.6 (9.0-12.0) Seconds INR 1.1 (0.9-1.1) Sodium 133 L (136-145) mmol/L Potassium 4.0 (3.5-5.1) mmol/L Chloride 98 (98-107) mmol/L Carbon Dioxide 27 (21-32) mmol/L Anion Gap 8 (3-11) BUN 22 (6-23) mg/dl Creatinine 1.06 (0.6-1.2) mg/dl Est Cr Clr Drug Dosing 36.8 ml/min eGFR 55.12 BUN/Creatinine Ratio 20.8 H (10-20) Glucose 134 H (70-99(Fasting)) mg/dl Calcium 10.3 (8.6-10.3) mg/dl Magnesium 1.9 (1.7-2.4) mg/dl Total Bilirubin 0.7 (0.2-1.0) mg/dl AST 29 (13-39) U/L ALT 18 (7-52) U/L Alkaline Phosphatase 29 L (34-104) U/L Troponin I High Sens 21.7 H (0-14) pg/ml B-Natriuretic Peptide 39 (0-100) pg/ml Total Protein 7.7 (6.0-8.3) gm/dl Albumin 4.8 (3.4-5.0) gm/dl Globulin 2.9 (2.5-4.0) gm/dl Albumin/Globulin Ratio 1.7 (0.9-2) Adenovirus (PCR) Not Detected (NotDetected) B. pertussis DNA (PCR) Not Detected (NotDetected) B.parapertussis DNA PCR Not Detected (NotDetected) C. pneumoniae DNA (PCR) Not Detected (NotDetected) Coronavirus OC43 (PCR) Not Detected (NotDetected) Coronavirus HKU1 (PCR) Not Detected (NotDetected) Coronavirus 229E (PCR) Not Detected (NotDetected) SARS-CoV-2 (PCR) Not Detected (NotDetected) Coronavirus NL63 (PCR) Not Detected (NotDetected) Human Metapneumovir PCR Not Detected (NotDetected) Influenza Type A (PCR) Not Detected (NotDetected) Influenza Type B (PCR) Not Detected (NotDetected) M. pneumoniae (PCR) Not Detected (NotDetected) Parainfluenza 1 (PCR) Not Detected (NotDetected) Parainfluenza 2 (PCR) Not Detected (NotDetected) Parainfluenza 3 (PCR) Not Detected (NotDetected) Parainfluenza 4 (PCR) Not Detected (NotDetected) RSV (PCR) Not Detected (NotDetected) Entero/Rhino (PCR) Not Detected (NotDetected) Administered Medications Heparin Sodium/Dextrose (Heparin 50557 Unit/500 Ml D5w) 25,000 units in 500 mls @ 0.02 mls/hr IV .Q24H [facility]; Protocol Stop: 08/31/25 15:14 Last Admin: 08/01/25 15:28 Dose: 900 units/hr, 18 mls/hr Documented By: ROSIE Co-signed By: TAMRA Discontinued Medications Heparin Sodium/Dextrose (Heparin Iv Adult Wt-Based Standard *No* Initial Bolus Protocol) 1 each IV ONE STA; Protocol Stop: 08/01/25 14:54 Last Admin: 08/01/25 15:30 Dose: Not Given Documented By: ROSIE Ioversol (Optiray 320 125ml) 112 ml IV ONCE ONE Stop: 08/01/25 14:25 Last Admin: 08/01/25 14:24 Dose: 112 ml Documented By: HELLEN Imaging Data Radiologist's Impression: Chest CTA 08/01/25 13:03 CT ANGIOGRAM OF THE CHEST CLINICAL HISTORY: Dyspnea COMPARISON STUDY: Chest x-ray dated 08/01/2025. Chest CT dated 09/14/2024. PET/CT dated 03/15/2025. TECHNIQUE: Following the IV administration of 112 cc of Optiray 320, CT angiogram of the chest was performed from the upper abdomen to the thoracic inlet utilizing the pulmonary embolus protocol. Images are reviewed in the axial, sagittal, and coronal planes. 3-D MIPS images are created and assessed. IV contrast was administered without complication. A dose lowering technique was utilized adhering to the principles of ALARA. There is streak artifact from a left shoulder arthroplasty. CT DOSE: 424.39 mGy.cm FINDINGS: Thyroid: Imaged portions of the thyroid gland are normal in size and attenuation. Thoracic aorta: There is atherosclerotic calcification of the thoracic aorta, which is normal in caliber and demonstrates standard 3-vessel arch anatomy. No dissection is seen. Pulmonary vasculature: The main pulmonary arteries are dilated suggesting pulmonary artery hypertension. There is extensive bilateral pulmonary embolus. There is thrombus in the distal right main pulmonary artery, which extends into the right upper and right lower lobe pulmonary arteries into segmental and subsegmental branches. There is thrombus within the left lower lobe pulmonary artery which extends into segmental and subsegmental branches. Segmental and subsegmental pulmonary emboli are seen within branches of the left upper lobe pulmonary artery. Heart: The heart is mildly enlarged and without pericardial effusion. The coronary arteries are densely calcified. Lungs and pleural spaces: Emphysematous change is observed. There is no airspace consolidation typical for pneumonia. The trachea and central airways appear clear. Fibrotic change at the right apex with surrounding loculated fluid is similar to 03/15/2025 PET examination. Related change in the left upper lobe is also similar to prior studies. Additional foci of parenchymal scarring are seen throughout both lungs. There is mild diffuse bronchiectasis with associated peribronchial thickening. Mediastinum: There is no mediastinal lymphadenopathy. Kristy: Clear. Axillae: There is no axillary lymphadenopathy. Upper abdomen: There is a small hiatal hernia. Diverticula are noted in the partially imaged left colon. Skeletal structures: The skeletal structures are osteopenic. Degenerative change and kyphoscoliosis is noted in the thoracic spine. No lytic or blastic bony lesions are seen. A left shoulder arthroplasty is in place. There is chronic deformity of the left-sided ribs. IMPRESSION: 1. Extensive bilateral pulmonary emboli as above. 2. Mild cardiomegaly and emphysema. 3. Fibrotic change at the right apex with adjacent loculated fluid and treatment related change in the left upper lobe is similar to previous. 4. There is no airspace consolidation typical for pneumonia. 5. Additional findings as above. ACT 112: Negative or not required by law. Electronically signed by: Keagan Araujo M.D. 08/01/2025 2:45 PM Chest X-Ray 08/01/25 13:04 XR chest 1V portable CLINICAL HISTORY: Dyspnea COMPARISON STUDY: 09/20/2024 FINDINGS: Stable mild cardiomegaly without pulmonary vascular congestion. There is increased bandlike opacity at the right lung apex. Stable bandlike opacity at the left upper lung. There is a possible interval small area of patchy opacity at the left lung base versus artifact. No other new consolidation or pleural effusion seen. No pneumothorax. IMPRESSION: 1. Possible early pneumonia left lung base. 2. Increased bandlike opacity at the right lung apex has morphology suggesting scarring. ACT 112: Negative or not required by law. Electronically signed by: Zak Spencer M.D. 08/01/2025 1:34 PM Discharge Plan Visit Data Chief Complaint: Respiratory Problems Stated Complaint: DOC REFFERAL, LOW OX ED Provider: Merna Pereira Discharge Problem: Acute dyspnea, Dyspnea on exertion, Bilateral pulmonary embolism, Hypoxia, Elevated troponin Patient Disposition: Admitted As Inpatient Condition: Fair Forms Stand Alone Forms: Counts Include [facility] Prescriptions Prescriptions: No Action methotrexate sodium 2.5 mg tablet 7.5 mg PO WEEKLY Patient Comments: aware to hold next Thursday Rx Instructions: takes on Sundays (DME) cane See Rx Instructions .Route .MEDSUPPLY Qty: 1 0RF Rx Instructions: As directed celecoxib 200 mg capsule 200 mg PO QAM Rinvoq 15 mg tablet extended release 24 hr 15 mg PO QAM cyanocobalamin (vitamin B-12) 1,000 mcg tablet 1,000 mcg PO DAILY cholecalciferol (vitamin D3) [Vitamin D3] 25 mcg (1,000 unit) Capsule 25 mcg PO QAM folic acid 1 mg tablet 1 mg PO QAM calcium carbonate-vitamin D3 [Calcium with Vitamin D] 600 mg(1,500mg) -400 unit tablet 1 tab PO QAM acetaminophen 500 mg Tablet 500 mg PO Q6H PRN (Reason: Pain) raloxifene 60 mg tablet 60 mg PO QAM Referrals Referrals: Gavi Morillo DO [Primary Care Provider] -
[2025-08-01] MEDS: HEPARIN 25000 UNIT/500 ML D5W 25,000 UNITS/500 ML BAG IV SCH (15:28)
[2025-08-01] MEDS: Heparin IV Adult Wt-Based Standard *NO* INITIAL Bolus Protocol IV STA (15:30)
[2025-08-01] MEDS ORDERED: MoRPHine SULFATE 4 MG/ML 1 ML CARP\\VIAL IV PRN (15:38)
--- NOTE | 2025-08-01 20:42 | History & Physical Report ---
Date of Service August 01, 2025 Assessment & Plan (1) Bilateral pulmonary embolism: Plan: As above in the History of Present Illness. (2) Chronic hyponatremia: Plan: As above in the History of Present Illness. (3) Elevated troponin: Plan: As above in the History of Present Illness. Admission and Anticipated Discharge Date Admission Date: August 01, 2025 History of Present Illness Chief Complaint: "I've been short of breath for about 1 week now, and I got real short of breath at midnight (08/01/2025, 12:00am), with no coughing, no wheezing, no chest pain, no fevers at all. So, I went to see my PCP Ms. Vaishali Rowland PA-C, in [place], [place] this morning (08/01/2025, 11:00am) and she saw that my oxygen level dropped to 80% on room air and said that I had to go to [facility] ER to get my oxygen level checked out as it was too low. So, I came to [facility] ER and they said my oxygen level was low at 84%. The ER doc then did a CAT scan of my chest and told me that I have blood clots in both my lungs. So, the ER doc started me on heparin dripping into my arm. 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 Devin Carranza), s/p completion of stereotactic radiation therapy to the left lung lesion with 5000 cGy delivered over 5 fractions by 10/19/2023, s/p completion of combined radiation and chemotherapy with 6600 cGy delivered via volumetric modulated arc therapy with [facility] RAD ONC Dr. Adina Solano; chemotherapy comprised of weekly taxol and carboplatin with [facility] Heme-Onc Dr. Layo Gonzalez), who reports: "I've been short of breath for about 1 week now, and I got real short of breath at midnight (08/01/2025, 12:00am), with no coughing, no wheezing, no chest pain, no fevers at all. So, I went to see my PCP Ms. Vaishali Rowland PA-C, in [place] this morning (08/01/2025, 11:00am) and she saw that my oxygen level dropped to 80% on room air and said that I had to go to [facility] ER to get my oxygen level checked out as it was too low. So, I came to [facility] ER and they said my oxygen level was low at 84%. The ER doc then did a CAT scan of my chest and told me that I have blood clots in both my lungs. So, the ER doc started me on heparin dripping into my arm. See?" Patient denies antecedent/coincident fevers, chills, diaphoresis, cough, wheeze, sore throat, hemoptysis, chest pains, palpitations, pleurisy, nausea, vomit, diarrhea, abdominal pain, pelvic pain, dysuria, hematuria, frequency, urgency, flank pain, headache, dizziness, visual changes, hearing changes, weakness, falls, sick contacts, trauma, travel history, or food/drug ingestions novel/new. All other review of systems is reported as negative. In [facility] ER bed #B3, patient was afebrile at 36.9 degrees Celsius, HR 76, RR 24, O2 sat 93% on room air, and BP 141/79 (08/01/2025, 2:45pm). Exam was noted for coarse breath sounds bilaterally without audible expiratory wheeze, egophony, pectoriloquy, increase in tactile fremitus, or flatness/dullness to percussion at the bases. Labs in [facility] ER bed #B3 included: WBC 6.0, N55 L36 M8 B1, Hb 11.3, MCV 99.7, MCHC 35.4, platelet 162 (08/01/2025, 1:11pm). Na 133, K 4.0, CO2 27, BUN 22, creatinine 1.06, glucose 134, anion gap 8, Ca 10,3 Mg 1.9, AST 29, ALT 18 ALK PHOS 29, total bili 0.7 (08/01/2025, 1:11pm). Troponin-I #1 21.7 pg/mL (08/01/2025, 1:10pm). Troponin-I #2 22.1 pg/mL (08/01/2025, 6:01pm). Additional testing in [facility] ER bed #B3 included: CTA chest (08/01/2025, 1:03pm): 1. Extensive bilateral pulmonary emboli as above. 2. Mild cardiomegaly and emphysema. 3. Fibrotic change at the right apex with adjacent loculated fluid and treatment related change in the left upper lobe is similar to previous. 4. There is no airspace consolidation typical for pneumonia. EKG (08/01/2025, 1:00pm): NSR @ 85, NM 150, QTC 452, LAD, TWI in aVL, no acute ST depressions/elevations (by my review). Historical testing in [facility] includes: EKG (01/06/2025, 12:55pm): NSR @ 79, NM 122, QTC 442, LAD, no TWI, no acute ST depressions/elevations (by my review). Patient was subsequently admitted to the inpatient hospitalist service @ [facility] on 08/01/2025 with the following diagnoses: 1. Acute bilateral PE, R/O acute cor pulmonale. 2. Chronic euvolemic hyponatremia with admission Na 133 mmol/L (08/01/2025, 1:11pm). 3. Acute type II NSTEMI with troponin-I #1 21.7 pg/mL (08/01/2025, 1:10pm) and troponin-I #2 22.1 pg/mL (08/01/2025, 6:01pm), due to demand ischemia, due to acute bilateral PE. To address #1, patient was started on heparin infusion with anti-Xa, UFH (, 9:30pm) with anticipated transition to eliquis 10mg PO bid x 7 days (starting in the 08/02/2025 am), followed by eliquis 5mg PO bid x 83 days (starting in the 08/09/2025 am). To evaluate for acute cor pulmonale, patient awaits TTE in the 08/02/2025 am to look for possible right heart strain due to acute bilateral PE. 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 Devin Carranza). To address #3, patient awaits TTE in the 08/02/2025 am to look for LV wall motion abnormalities that would support gladis ana acute myocardial ischemia. However, my clinical index of suspicion remains low for this patient having an acute type I NSTEMI on admission date 08/01/2025. Allergies Allergy/AdvReac Type Severity Reaction Status Date / Time tofacitinib [From Xeljanz] AdvReac Mild Gastrointestinal Verified 08/01/25 11:03 Upset Home Medications Medication Instructions Recorded Confirmed Type upadacitinib 15 mg tablet,extended 15 mg PO QAM 11/09/19 08/01/25 History release 24 hr (Rinvoq) methotrexate sodium 2.5 mg tablet 7.5 mg PO WEEKLY 08/08/20 08/01/25 History calcium 600 mg (as 1 tab PO QAM 02/02/23 08/01/25 History carbonate)-vitamin D3 10 mcg (400 unit) tablet (Calcium with Vitamin D) cholecalciferol (vitamin D3) 25 25 mcg PO QAM 02/02/23 08/01/25 History mcg (1,000 unit) capsule (Vitamin D3) folic acid 1 mg tablet 1 mg PO QAM 02/02/23 08/01/25 History cane #1 ea 02/05/23 08/01/25 Rx acetaminophen 500 mg tablet 500 mg PO Q6H PRN Pain 07/13/23 08/01/25 History celecoxib 200 mg capsule 200 mg PO QAM 03/01/24 08/01/25 History raloxifene 60 mg tablet 60 mg PO QAM 10/31/24 08/01/25 History cyanocobalamin (vitamin B-12) 1,000 mcg PO DAILY 08/01/25 08/01/25 History 1,000 mcg tablet Past Med/Surg History Problem List (Updated 08/01/25 @ 20:58 by Tushar Wiggins MD, PhD) Chronic hyponatremia Elevated troponin (Acute) Hypoxia (Acute) Bilateral pulmonary embolism (Acute) Dyspnea on exertion (Acute) Acute dyspnea (Acute) Squamous cell carcinoma of right lung (Chronic 09/20/24) Squamous cell carcinoma of lung, stage I (Chronic) Diagnosed on 09/15/23 COPD (chronic obstructive pulmonary disease) very well controlled per pt > no inhalers Pulmonary nodule (Chronic) monitoring with Dr Carranza Gait abnormality Vitamin D deficiency Steroid-induced osteoporosis Rheumatoid arthritis follows with Dr Domínguez in [place]. Generalized osteoarthritis of multiple sites Medical History Osteoarthritis Hx of squamous cell carcinoma lung>radiation tx 08/2024 Rheumatoid arthritis Chronic obstructive pulmonary disease "mild" Lung nodule Surgical History History of cataract surgery right Status post left shoulder hemiarthroplasty (~06/2023) H/O arthroscopy of knee left History of bronchoscopy 03/23/23; ETT#8.0 HiLo, DVL x 1 atraumatic 09/15/23 Dr. Carranza History of tooth extraction Sebaceous cyst removed from right cheek area Family History Daughter Breast cancer Father , 86yo Bladder infection Sister Ovarian cancer Mother , 84yo Stroke Daughter No problems noted. Other No family history of adverse response to anesthesia Denies family history of Prostate cancer Myocardial infarction Colorectal cancer Social History Smoking Status: Former smoker Tobacco Type: Cigarettes Age Started Using Tobacco: 21; Age Quit Using Tobacco: 74; packs per day: 1; Cigarettes Per Day: 10; Smoking End Date: 08/2024; Second Hand Exposure: Yes; Do You Dip or Chew Tobacco: No; Tobacco Cessation Education Requested by Patient: No Hx Alcohol Use: No Hx Substance Use: No Preferred Language: Citizen Of [place] Communication Ability: Effective Visual Impairment: No Limitations Hearing Ability: Normal Linux Consultant Required: No Beliefs That Will Affect Care: None marital status: Current Living Situation: Spouse current occupational status: retired current occupation: Worked at a [employer] How many Children do You have: 2 Feels Safe at Home: Yes Safety Concerns: Feels Safe At This Time caffeine: Yes (2 cups coffee/dy) during the past year weight has: remained stable Seatbelt Use: always Assistive Devices: Cane Review of Systems Constitutional: As above in the History of Present Illness. Physical Exam Constitutional: General: Comfortable, cooperative and coherent. Wide awake and alert. Not confused, lethargic, or obtunded. Patient speaks in complete, fluent, and articulate sentences, without pause, interruption, cough, or wheeze. HEENT: NC/AT. EOMI. PERRL. No diplopia, homonymous hemianopsia, superior/inferior/nasal/temporal quadrantanopia, nystagmus, gaze paresis, anisocoria, miosis, mydriasis, chemosis, hyphema, scleral injection, conjunctivitis, pterygium, facial droop, dysarthria, or pronator drift. No otorrhea. No rhinorrhea. Neck: Supple, no stridor, bruit, or goiter. Jugular venous pressure 3 cm above the sternal angle of Derek, which is typically 5 cm above the right atrium. Lymph: No anterior/posterior cervical lymphadenopathy, supraclavicular/infraclavicular lymphadenopathy, axilla/epitrochlear/inguinal lymphadenopathy. Chest: Symmetric rise and fall with respirations. Non-tender to palpation. Heart: RRR, S1 and S2. No S3 or S4 summation gallop. No tripartite friction rub. No murmur. Lungs: Clear to auscultation and percussion. No audible expiratory wheeze, egophony, pectoriloquy, increase in tactile fremitus, or flatness/dullness to percussion at the bases. Abd: Soft, non-tender, non-distended. Bowel sounds auscultated in all 4 quadrants. No rebound, guarding, Domínguez's sign, or organomegaly. Ext: No clubbing, cyanosis, or edema. 2+ pedal pulses bilaterally. Skin: No decubitus ulcer or enanthem or exanthem. Neuro: Alert and oriented in regards to person, place, time, and situation. No tremors, tics, or myoclonus. DTR+. 5/5 motor strength in all 4 extremities, both proximally and distally. Urology: No herrera catheter. No purewick. No urethral discharge. Results & Data Results & Data Vital Signs (Past 12 Hours) Vital Signs Temp Pulse Pulse Pulse Resp BP BP 08/01/25 19:39 36.7 C 77 18 119/76 08/01/25 17:52 36.3 C L 78 19 08/01/25 17:36 08/01/25 16:09 78 20 128/91 08/01/25 15:36 81 08/01/25 14:45 78 20 08/01/25 14:15 77 19 08/01/25 13:30 74 23 08/01/25 13:24 76 20 08/01/25 13:19 76 24 08/01/25 13:16 08/01/25 12:49 36.9 C 91 H 17 120/63 BP Pulse Ox O2 Del Method O2 Flow Rate 08/01/25 19:39 98 Nasal Cannula 2.5 08/01/25 17:52 153/86 H 90 Room Air 08/01/25 17:36 Nasal Cannula 2 08/01/25 16:09 97 Nasal Cannula 2 08/01/25 15:36 95 Nasal Cannula 2 08/01/25 14:45 Room Air 08/01/25 14:15 08/01/25 13:30 92 08/01/25 13:24 91 08/01/25 13:19 141/79 H 93 Room Air 08/01/25 13:16 96 Room Air 08/01/25 12:49 92 Room Air Laboratory Results As above in the History of Present Illness. Diagnostic Findings As above in the History of Present Illness. Medications Administered As above in the History of Present Illness. Code Status & VTE Plan VTE Prophylaxis Plan VTE Prophylaxis will be ordered: No Reason for no VTE drug order: Treatment not indicated PG Care Time/CCT Total # of Minutes Spent Total Time Spent with Patient: Total time spent is greater than 50% in coordination of care (as documented) at patient's floor/unit and/or counseling patient: Coding Level of Care Code 88062 INT INP/OBS CARE 2/55MIN Diagnoses Bilateral pulmonary embolism I26.99 Chronic hyponatremia E87.1 Elevated troponin R79.89
[2025-08-01 20:48] LABS: Appearance Urine Clear (Clear); Glucose Urine UA Negative (Negative)
[2025-08-01 22:20] LABS: ANTI-Xa, UFH(UnfractionatedHep 0.89 IU/ml (0.3-0.7)
[2025-08-01] MEDS: ACETAMINOPHEN 1,000 MG/100 ML VIAL IV PRN (23:20)
[2025-08-02] MEDS: CALCIUM CARBONATE 500 MG CHEWABLE TAB PO PRN (02:03)
[2025-08-02 05:39] LABS: ANTI-Xa, UFH(UnfractionatedHep 0.90 IU/ml (0.3-0.7)
--- NOTE | 2025-08-02 11:43 | XCELERA ---
[id number]
--- NOTE | 2025-08-02 12:28 | Electrocardiogram Report ---
Test Reason : Blood Pressure : */* mmHG Vent. Rate : 85 BPM Atrial Rate : 85 BPM P-R Int : 150 ms QRS Dur : 70 ms QT Int : 380 ms P-R-T Axes : 68 -32 76 degrees QTcB Int : 452 ms Normal sinus rhythm with sinus arrhythmia Left axis deviation Nonspecific ST abnormality Abnormal ECG When compared with ECG of 06-Jan-2025 12:55, T wave amplitude has increased in Inferior leads Confirmed by Joshua Bruno ([id number]) on 08/02/2025 12:28:00 PM Referred By: Confirmed By: Joshua Bruno
[2025-08-02] MEDS: APIXABAN 5 MG TABLET PO SCH (13:27)
[2025-08-02 15:29] VITALS: RESP 18; TEMP 97.5; O2SAT 94
--- NOTE | 2025-08-02 15:57 | Discharge Summary ---
Discharge Summary Date of Service August 02, 2025 Principal Dx & Hospital Course #1 = Principal Diagnosis (1) Bilateral pulmonary embolism: As above in the History of Present Illness. (2) Chronic hyponatremia: As above in the History of Present Illness. (3) Elevated troponin: As above in the History of Present Illness. Admission HPI Per Admitting Provider 75 years old female with PMH of FULL CODE @ home, osteoarthritis on tylenol 500mg PO q6 prn headache, temp > 100.4 degrees Fahrenheit, rheumatoid arthritis on methotrexate 7.5mg PO weekly, celebrex 200mg PO qam and upadacitinib (Rinvoq) 15mg PO qam, post-menopausal osteoporosis on raloxifene 60mg PO qam, chronic diastolic CHF with preserved LVEF 60-65% with grade I LV diastolic dysfunction (as noted on 08/01/2025, 4:00pm TTE, CARDS Dr. 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 Devin Carranza), s/p completion of stereotactic radiation therapy to the left lung lesion with 5000 cGy delivered over 5 fractions by 10/19/2023, s/p completion of combined radiation and chemotherapy with 6600 cGy delivered via volumetric modulated arc therapy with [facility] RAD ONC Dr. Adina Solano; chemotherapy comprised of weekly taxol and carboplatin with [facility] Heme-Onc Dr. Layo Gonzalez), who reports: "I've been short of breath for about 1 week now, and I got real short of breath at midnight (08/01/2025, 12:00am), with no coughing, no wheezing, no chest pain, no fevers at all. So, I went to see my PCP Ms. Vaishali Rowland PA-C, in [place], [place] this morning (08/01/2025, 11:00am) and she saw that my oxygen level dropped to 80% on room air and said that I had to go to [facility] ER to get my oxygen level checked out as it was too low. So, I came to [facility] ER and they said my oxygen level was low at 84%. The ER doc then did a CAT scan of my chest and told me that I have blood clots in both my lungs. So, the ER doc started me on heparin dripping into my arm. See?" Patient denies antecedent/coincident fevers, chills, diaphoresis, cough, wheeze, sore throat, hemoptysis, chest pains, palpitations, pleurisy, nausea, vomit, diarrhea, abdominal pain, pelvic pain, dysuria, hematuria, frequency, urgency, flank pain, headache, dizziness, visual changes, hearing changes, weakness, falls, sick contacts, trauma, travel history, or food/drug ingestions novel/new. All other review of systems is reported as negative. In [facility] ER bed #B3, patient was afebrile at 36.9 degrees Celsius, HR 76, RR 24, O2 sat 93% on room air, and BP 141/79 (08/01/2025, 2:45pm). Exam was noted for coarse breath sounds bilaterally without audible expiratory wheeze, egophony, pectoriloquy, increase in tactile fremitus, or flatness/dullness to percussion at the bases. Labs in [facility] ER bed #B3 included: WBC 6.0, N55 L36 M8 B1, Hb 11.3, MCV 99.7, MCHC 35.4, platelet 162 (08/01/2025, 1:11pm). Na 133, K 4.0, CO2 27, BUN 22, creatinine 1.06, glucose 134, anion gap 8, Ca 10,3 Mg 1.9, AST 29, ALT 18 ALK PHOS 29, total bili 0.7 (08/01/2025, 1:11pm). Troponin-I #1 21.7 pg/mL (08/01/2025, 1:10pm). Troponin-I #2 22.1 pg/mL (08/01/2025, 6:01pm). Additional testing in [facility] ER bed #B3 included: CTA chest (08/01/2025, 1:03pm): 1. Extensive bilateral pulmonary emboli as above. 2. Mild cardiomegaly and emphysema. 3. Fibrotic change at the right apex with adjacent loculated fluid and treatment related change in the left upper lobe is similar to previous. 4. There is no airspace consolidation typical for pneumonia. EKG (08/01/2025, 1:00pm): NSR @ 85, IN 150, QTC 452, LAD, TWI in aVL, no acute ST depressions/elevations (by my review). Historical testing in [facility] includes: EKG (01/06/2025, 12:55pm): NSR @ 79, IN 122, QTC 442, LAD, no TWI, no acute ST depressions/elevations (by my review). Patient was subsequently admitted to the inpatient hospitalist service @ [facility] on 08/01/2025 with the following diagnoses: 1. Acute bilateral PE, R/O acute cor pulmonale. 2. Chronic euvolemic hyponatremia with admission Na 133 mmol/L (08/01/2025, 1:11pm). 3. Acute type II NSTEMI with troponin-I #1 21.7 pg/mL (08/01/2025, 1:10pm) and troponin-I #2 22.1 pg/mL (08/01/2025, 6:01pm), due to demand ischemia, due to acute bilateral PE. To address #1, patient was started on heparin infusion with anti-Xa, UFH (, 9:30pm), then transitioned to eliquis 10mg PO bid x 7 days (starting in the 08/02/2025, 1:27pm), after TTE (08/01/2025, 3:44pm) revealed no regional wall motion abnormalities (thereby making acute right heart strain unlikely), as well as preserved/normal LVEF 60-65% (as per CARDS Dr. Joshua Bruno). Patient tolerated the first/test dose of eliquis 10mg PO bid very well on 08/02/2025, 1:27pm. Patient was subsequently discharged back to her home on 08/02/2025 with electronic prescriptions transmitted to her [id number], [id number] [place] [id number], on 08/02/2025 for: a. eliquis 10mg PO bid (starting on 08/02/2025, 10:00pm; last dose on 08/08/2025, 10:00pm), #13 tablets, each tablet 5mg, no refills. b. eliquis 5mg PO bid (starting on 08/09/2025, 10:00am; last dose on 09/07/2025, 10:00pm), #60 tablets, each tablet 5mg, 3 refills. Of clinical importance, patient was advised to hold OFF her home-scheduled celebrex 200mg PO qam while taking eliquis 10mg PO bid (starting on 08/02/2025, 10:00pm; last dose on 08/08/2025, 10:00pm), given the increased risk of bleeding associated with co-administration of eliquis and celebrex. It is ironic that the very chronic inflammation of rheumatoid arthritis not only (a) compels this patient to take a daily anti-inflammatory NSAID such as celebrex 200mg PO qam, but it also (b) leads to a pro-thrombotic / hypercoagulable state culminating in acute bilateral PE, compelling patient to take twice daily doses of eliquis for the next 3 months, the combination of which (e.g., celebrex 200mg PO qam and el iquis 10mg PO bid x 7 days, then eliquis 5mg PO bid x 83 days) can increase patient's risk for inadvertent bleeding. Patient reports that she has been maintained on celebrex 200mg PO qam for several years and does not want to stop taking or cutting down her celebrex dose from 200mg PO qam to 100mg PO qam. Hence, the best option to mitigate inadvertent bleeding from co-administration of celebrex 200mg PO qam and eliquis 10mg PO bid x 7 days, then eliquis 5mg PO bid x 83 days appears to be (a) holding OFF her home-scheduled celebrex 200mg PO qam while taking eliquis 10mg PO bid (starting on 08/02/2025, 10:00pm; last dose on 08/08/2025, 10:00pm), then (b) restarting celebrex 200mg PO qam on 08/09/2025, on which date patient will start eliquis 5mg PO bid x 83 days (08/09/2025, 10:00am through 10/30/2025, 10:00pm), then (c) stopping eliquis 5mg PO bid after 10/30/2025, 10:00pm dose is administered to the patient. 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 Devin Carranza). With SIADH as the proximal cause for this patient's chronic euvolemic hyponatremia, patient demonstrated no neurologic complaints such as confusion, weakness, or psychomotor retardation, as might be observed in patients presenting with acute hypovolemic hyponatremia. Hence, no fluid restriction was warranted while patient remained in [facility] from admission date 08/01/2025 through discharge date 08/02/2025 and discharge Na 133 mmol/L (08/02/2025, 1:10pm). To address #3, patient underwent TTE (08/01/2025, 3:44pm) to look for LV wall motion abnormalities that would support gladis ana acute myocardial ischemia. However, my clinical index of suspicion remained low for this patient having an acute type I NSTEMI on admission date 08/01/2025. Subsequently, TTE (08/01/2025, 3:44pm) revealed no LV wall motion abnormalities and hence, patient did not have an acute type I NSTEMI, instead, patient suffered from an acute typ e II NSTEMI, for which no further evaluation is warranted. Discharge Exam Constitutional General: Comfortable, cooperative and coherent. Wide awake and alert. Not confused, lethargic, or obtunded. Patient speaks in complete, fluent, and articulate sentences, without pause, interruption, cough, or wheeze. HEENT: NC/AT. EOMI. PERRL. No diplopia, homonymous hemianopsia, superior/inferior/nasal/temporal quadrantanopia, nystagmus, gaze paresis, anisocoria, miosis, mydriasis, chemosis, hyphema, scleral injection, conjunctivitis, pterygium, facial droop, dysarthria, or pronator drift. No otorrhea. No rhinorrhea. Neck: Supple, no stridor, bruit, or goiter. Jugular venous pressure 3 cm above the sternal angle of Derek, which is typically 5 cm above the right atrium. Lymph: No anterior/posterior cervical lymphadenopathy, supraclavicular/infraclavicular lymphadenopathy, axilla/epitrochlear/inguinal lymphadenopathy. Chest: Symmetric rise and fall with respirations. Non-tender to palpation. Heart: RRR, S1 and S2. No S3 or S4 summation gallop. No tripartite friction rub. No murmur. Lungs: Clear to auscultation and percussion. No audible expiratory wheeze, egophony, pectoriloquy, increase in tactile fremitus, or flatness/dullness to percussion at the bases. Abd: Soft, non-tender, non-distended. Bowel sounds auscultated in all 4 quadrants. No rebound, guarding, Domínguez's sign, or organomegaly. Ext: No clubbing, cyanosis, or edema. 2+ pedal pulses bilaterally. Skin: No decubitus ulcer or enanthem or exanthem. Neuro: Alert and oriented in regards to person, place, time, and situation. No tremors, tics, or myoclonus. DTR+. 5/5 motor strength in all 4 extremities, both proximally and distally. Urology: No herrera catheter. No purewick. No urethral discharge. Discharge Plan Discharge Items Patient Disposition: Home - Self-Care Reason For Visit: ACUTE BILATERAL PE Discharge Diagnosis: 1. Acute bilateral PE, s/p R/O acute cor pulmonale. 2. Chronic euvolemic hyponatremia with admission Na 133 mmol/L (08/01/2025, 1:11pm). 3. Acute type II NSTEMI with troponin-I #1 21.7 pg/mL (08/01/2025, 1:10pm) and troponin-I #2 22.1 pg/mL (08/01/2025, 6:01pm), due to demand ischemia, due to acute bilateral PE. Condition on Discharge: Fair Activity: Resume your previous activity Lifting: Gradually increase as tolerated Bathing: No limitations Sexual Activity: When tolerated Exercise/Sports: Gradually increase as tolerated Weightbearing: Full weightbearing Non-emergency contact: Primary Care Provider Call non-emergency contact if: you have any medication questions Follow-up/Referrals: Gavi Morillo DO [Primary Care Provider] - 08/09/25 9:00 am Diet: Heart Healthy Addtl Attending Provider Instructions: See your PCP Dr. Gavi Morillo within 5-7 days of hospital discharge for routine follow up visit. Pending Studies at Discharge: No Stand-Alone Forms: [facility], Smoking Cessation Medications and DC Order Prescriptions: New calcium carbonate [Tums] 200 mg calcium (500 mg) Tablet,Chewable 1,500 mg PO Q6H PRN (Reason: dyspepsia) Qty: 240 0RF Eliquis 5 mg Tablet 10 mg PO BID Qty: 13 0RF Rx Instructions: Take 2 eliquis tablets by mouth twice a day for the next 7 days (08/02/2025, 10:00pm through 08/08/2025, 10:00pm). Hold OFF celebrex 200mg PO daily while you take 2 eliquis tablets by mouth twice a day for the next 7 days (08/02/2025, 10:00pm through 08/08/2025, 10:00pm) as the combination of these two medications can increase the risk of bleeding. Eliquis 5 mg tablet 5 mg PO BID Qty: 60 3RF Rx Instructions: Take 1 eliquis tablet by mouth twice a day (08/09/2025, 10:00am through 09/07/2025, 10:00pm). Continued methotrexate sodium 2.5 mg tablet 7.5 mg PO WEEKLY Patient Comments: aware to hold next Thursday Rx Instructions: takes on Sundays (DME) cane See Rx Instructions .Route .MEDSUPPLY Qty: 1 0RF Rx Instructions: As directed Rinvoq 15 mg tablet extended release 24 hr 15 mg PO QAM cyanocobalamin (vitamin B-12) 1,000 mcg tablet 1,000 mcg PO DAILY cholecalciferol (vitamin D3) [Vitamin D3] 25 mcg (1,000 unit) Capsule 25 mcg PO QAM folic acid 1 mg tablet 1 mg PO QAM calcium carbonate-vitamin D3 [Calcium with Vitamin D] 600 mg(1,500mg) -400 unit tablet 1 tab PO QAM acetaminophen 500 mg Tablet 500 mg PO Q6H PRN (Reason: Pain) raloxifene 60 mg tablet 60 mg PO QAM Held celecoxib 200 mg capsule 200 mg PO QAM Hold Instructions: Resume on 08/10/25. Discharge Orders: Discharge Order (Routine); Ordered 08/02/25 Ordered By: Tushar Wiggins Admission Data Admit Date/Time: 08/01/25 15:39 Attending Provider: Tushar Wiggins Admit Provider: Tushar Wiggins Primary Care Provider: Gavi Morillo Other Providers: Murtaza Carter Hospital Stay Data Consultations 08/01/25 15:19 ED Decision to Admit Stat Diagnostic Imagining Performed 08/01/25 13:03 CT for pulmonary embolism PE [CT angio chest PE protocol] Stat Pending Results Patient Have Any Pending Studies at Discharge: No Discharge Instructions Given to Patient (Per Discharging Provider) See your PCP Dr. Gavi Morillo within 5-7 days of hospital discharge for routine follow up visit. Total Time Total Time Spent Total Time Spent (In Minutes): 35 minutes. Of this time period, 19 minutes were spent in coordinating patient's discharge. Coding Level of Care Code 00409 INP/OBS DISCH >30 MIN Diagnoses Bilateral pulmonary embolism I26.99 Chronic hyponatremia E87.1 Elevated troponin R79.89
[2025-08-02 16:26] VITALS: BP 153/86; PULSE 78
== END 2025-08-02 17:12 | disposition home or self-care (01) | DRG 175 ==
LOC: ED 12:46 → INTOOBSV 15:39 → 2N 15:39